=== PATIENT | female | born 1960 | race African-American/Black ===

== ENCOUNTER 2017-04-09 06:40 | Day surgery (SDC) | payer OTHER ==
[2017-04-09] MEDS ORDERED: WATER FOR IRRIG STERILE IR ONE (07:24)
[2017-04-09] MEDS ORDERED: NACL 0.9% 1000 ML 1,000 ML IV SCH (08:00)
--- NOTE | 2017-04-09 08:39 | Anesthesia Consultation ---
Anesthesia Consult and Med Hx Date of service: 04/09/17 - Airway Anesthetic Teeth Evaluation: Poor (broken lower back tooth) ROM Head & Neck: Adequate Mental/Hyoid Distance: Adequate Mallampati Class: Class II - Pre-Operative Health Status ASA Pre-Surgery Classification: ASA2 Proposed Anesthetic Plan: MAC - Pulmonary SOB: Yes
--- NOTE | 2017-04-09 08:40 | Anesthesia Day of Surgery ---
Anesthesia Day of Surgery - Day of Surgery Patient Examined: Yes Patient H&P Reviewed: Yes Patient is NPO: Yes
[2017-04-09] MEDS ORDERED: DIPRIVAN 10 MG/ML IV ONE (08:42)
--- NOTE | 2017-04-09 09:18 | Short Stay Summary ---
Short Stay Documentation - Allergies and Medications Current Medications: Allergies No Known Allergies Allergy (Verified 04/09/17 08:13) Home Medications Medication Instructions Recorded Confirmed Last Taken Type No Known Home Medications [No 04/09/17 04/09/17 Unknown History Reported Home Medications] Active Medications Sodium Chloride (Nacl 0.9% 1000 Ml) 1,000 mls @ 50 mls/hr IV DIRECT PAMELA Last Admin: 04/09/17 08:12 Dose: 50 mls/hr - Brief post op/procedure progress note Date of procedure: 04/09/17 Pre-op diagnosis: Colon cancer screening Post-op diagnosis: same (1. Internal hemorrhoids) Procedure: Colonoscopy Anesthesia: MAC Findings: as above Surgeon: LORIE TRINIDAD Estimated blood loss: none Pathology: none Condition: stable - Disposition Condition at discharge: Stable Short Stay Discharge Plan Activity: no restrictions Weight Bearing Status: Full Weight Bearing Diet: regular Follow up with: SHAUNA ZAPATA MD [Primary Care Provider] - 7 Days
[2017-04-09 09:43] VITALS: BP 106/55
--- NOTE | 2017-04-09 11:55 | Post Anesthesia Evaluation ---
- Post Anesthesia Evaluation Patient Participated: Yes Airway Patent: Yes Stable Respiratory Function: Yes Nausea/Vomiting: No Temp > 96.8F: Yes Pain Manageable: Yes Adequeate Hydration: Yes Anesthesia Complications: No
== END 2017-04-09 06:41 | disposition home or self-care (01) ==
LOC: GIO 06:40
PROVIDERS: ATTEND Internal Medicine Gastroenterology
DX: Z12.11 Encounter for screening for malignant neoplasm of colon (principal); K64.8 Other hemorrhoids; K64.0 First degree hemorrhoids; Z98.890 Other specified postprocedural states; Z90.710 Acquired absence of both cervix and uterus; R00.1 Bradycardia, unspecified
CPT/HCPCS: 45378; J2704; J7030